=== PATIENT | female | born 1980 | race Hispanic/Latino ===

== ENCOUNTER 2023-08-06 13:51 | Outpatient (CLI) | payer OTHER | END 2023-08-06 13:52 | disposition home or self-care (01) | LOC: BICMAMMO 13:51 | PROVIDERS: ATTEND Nurse Practitioner Family | DX: N64.89 Other specified disorders of breast (principal); N63.12 Unspecified lump in the right breast, upper inner quadrant | CPT/HCPCS: G0279 ==

== ENCOUNTER → 2023-08-24 | Day surgery (SDC) | payer OTHER | LOC: BICULT 12:33 | PROVIDERS: ATTEND Nurse Practitioner Family | PROC: 0HB5XZX Excision of Chest Skin, External Approach, Diagnostic (ICD-10-PCS; principal; 2023-08-24) | DX: N63.25 Unspecified lump in the left breast, overlapping quadrants (principal); R92.8 Other abnormal and inconclusive findings on diagnostic imaging of breast; D24.2 Benign neoplasm of left breast | CPT/HCPCS: 19083; 88305 ==